=== PATIENT | male | born 1995 | race Caucasian/White ===

== ENCOUNTER 2023-02-06 12:26 | Emergency (ER) | payer SELFPAY ==
[~2023-02-06] VITALS: Ht 157.5 cm; Wt 61.2 kg
[2023-02-06 12:36] VITALS: BP_SYST 122; PULSE 70; RESP 18; TEMP 98.2; O2SAT 97
[2023-02-06] MEDS ORDERED: IBUP-1969 PO (13:14)
[2023-02-06] MEDS ORDERED: BACITRACIN 1 GM OINT TP ONE (13:17)
[2023-02-06] MEDS ORDERED: DIPHTH,PERTUSS(ACELL),TET VAC 0.5 ML VIAL (Tdap) I.M. ONE (13:30)
[2023-02-06 13:43] VITALS: BP_SYST 122; PULSE 70; RESP 18; TEMP 98.2; O2SAT 97
== END 2023-02-06 13:43 | disposition home or self-care (01) ==
LOC: SED 12:26
DX: S61.511A Laceration without foreign body of right wrist, initial encounter (principal); Z79.899 Other long term (current) drug therapy; W26.8XXA Contact with other sharp object(s), not elsewhere classified, initial encounter; Y93.89 Activity, other specified; Y92.89 Other specified places as the place of occurrence of the external cause; Y99.8 Other external cause status
CPT/HCPCS: 90715; 99283